=== PATIENT | female | born 1995 | race American Indian/Alaskan Native ===

== ENCOUNTER 2018-05-22 15:48 | Emergency (ER) | payer MEDICAID ==
--- NOTE | 2018-05-22 16:12 | ED PDOC ---
HPI: Psych/Substance Abuse Time Seen by Provider: 05/22/18 16:04 Chief Complaint (Nursing): Psychiatric Evaluation History Per: Other Additional Complaint(s): H/o Autism, became aggressive and started biting herself on bus during transport from daycare to residential facility. Pt non verbal hx obtained from EMS Past Medical History Vital Signs: Last Vital Signs Temp 99.6 F 05/22/18 15:50 Pulse 88 05/22/18 15:50 Resp 18 05/22/18 15:50 BP 131/71 05/22/18 15:50 Pulse Ox 99 05/22/18 15:50 - Medical History Other PMH: Autism - Family History Family History: States: Unknown Family Hx - Immunization History Hx Tetanus Toxoid Vaccination: No Hx Influenza Vaccination: No Hx Pneumococcal Vaccination: No - Home Medications Home Medications: Ambulatory Orders Medication Instructions Recorded Unobtainable 11/29/16 - Allergies Allergies/Adverse Reactions: Allergies Allergy/AdvReac Type Severity Reaction Status Date / Time No Known Allergies Allergy Verified 05/22/18 15:49 Review of Systems Review Of Systems: ROS cannot be obtained secondary to pt's inabilty to answer questions. Physical Exam - Physical Exam Appears: Positive for: Non-toxic, No Acute Distress Head Exam: Positive for: ATRAUMATIC, NORMAL INSPECTION, NORMOCEPHALIC Skin: Positive for: Normal Color, Warm, DRY Cardiovascular/Chest: Positive for: Regular Rate, Rhythm Respiratory: Positive for: CNT, Normal Breath Sounds Neurologic/Psych: Positive for: Alert - ECG O2 Sat by Pulse Oximetry: 99 Disposition - Clinical Impression Clinical Impression: Autism - Patient ED Disposition Is Patient to be Admitted: No Counseled Patient/Family Regarding: Diagnosis, Need For Followup - Disposition Disposition: Routine/Home Disposition Time: 17:53 Condition: FAIR Instructions: Autism Spectrum Disorder Forms: Newser ([employer])
[2018-05-22 18:36] VITALS: BP 132/62; PULSE 66; RESP 16; TEMP 98.5; O2SAT 100
== END 2018-05-22 18:00 | disposition home or self-care (01) ==
LOC: H.ER 15:48
DX: F84.0 Autistic disorder (principal)